=== PATIENT | male | born 1970 | race Caucasian/White ===

== ENCOUNTER 2022-03-29 08:28 | Day surgery (SDC) | payer OTHER ==
--- NOTE | 2022-03-28 12:47 | HP ---
DATE OF SURGERY: 03/29/2022 HISTORY OF PRESENT ILLNESS: The patient presents with complaints of nausea in the last month. He has had emesis as well. He had this before. It is after eating meals particularly fatty and greasy food. The patient had gallbladder ultrasound demonstrating some sludge. PAST MEDICAL HISTORY: Gastroesophageal reflux disease. PAST SURGICAL HISTORY: None. ALLERGIES: NKDA. MEDICATIONS: Protonix. FAMILY HISTORY: None. SOCIAL HISTORY: Former smoker. Daily alcohol. REVIEW OF SYSTEMS: CONSTITUTIONAL: Denies fever or chills. CHEST: Denies shortness of breath. CVS: Denies chest pain. ABDOMEN: Reports some upper abdominal pain, nausea and vomiting. Denies diarrhea, constipation or rectal bleeding. PHYSICAL EXAMINATION: GENERAL: No acute distress. CHEST: Nonlabored. No shortness of breath. CVS: Regular rate and rhythm. ABDOMEN: Soft. IMPRESSION: Chronic cholecystitis with sludge. PLAN: Laparoscopic cholecystectomy with Dr. Joe Downs. As dictated by Monica Perez NP.
[~2022-03-29 08:28] MED LIST: Lactated Ringers 1,000 ML IV ONE; Sensorcaine 0.25% 10 ML ONE
[2022-03-29] MEDS ORDERED: Pepcid 20 MG VIAL IV ONE ×3 (08:36→08:58)
[2022-03-29] MEDS ORDERED: Reglan 10 MG/2 ML IV ONE (08:36)
[2022-03-29] MEDS ORDERED: Versed 2 MG/2 ML Injection IV PRN (08:42)
[2022-03-29] MEDS ORDERED: Reglan 10 MG/2 ML ONE (08:59)
[2022-03-29] MEDS ORDERED: Lactated Ringers 1,000 ML IV ONE ×2 (08:59→10:15)
[2022-03-29] MEDS ORDERED: Lactated Ringers 1,000 ML IV SCH (09:00)
[2022-03-29] MEDS ORDERED: Versed 2 MG/2 ML Injection ONE (09:58)
[2022-03-29] MEDS ORDERED: MEFOXIN 2 GM PREMIX** 2 GM/50 ML ML IV SCH (10:00)
[2022-03-29] MEDS ORDERED: DIPRIVAN 200 MG/20 ML IV ONE (10:03)
[2022-03-29] MEDS ORDERED: Xylocaine-Mpf 2% 5 Ml Vial ONE (10:03)
[2022-03-29] MEDS ORDERED: Quelicin Fliptop 200 MG/10 ML ONE (10:03)
[2022-03-29] MEDS ORDERED: Zemuron 100 MG/10 ML ONE (10:03)
[2022-03-29] MEDS ORDERED: Zofran 4 MG/2 ML VIAL ONE (10:03)
[2022-03-29] MEDS ORDERED: Decadron 4 MG INJ ONE (10:03)
[2022-03-29] MEDS ORDERED: SUBLIMAZE 100 MCG/2 ML ONE ×3 (10:04→11:39)
[2022-03-29] MEDS ORDERED: Pre-Attached Lta Kit TP ONE (10:15)
[2022-03-29] MEDS ORDERED: OFIRMEV 100 ML IV ONE (10:15)
[2022-03-29] MEDS ORDERED: BRIDION 200MG/2ML IV ONE (10:45)
[2022-03-29] MEDS ORDERED: Hydromorphone 1 mg/ml Injection ONE (12:00)
[2022-03-29] MEDS ORDERED: TRANDATE 20 MG/4 ML SYRINGE IV ONE (12:10)
[2022-03-29] MEDS ORDERED: APRESOLINE 20 MG/ML INJ ONE (12:25)
[2022-03-29 13:05] VITALS: O2SAT 93
[2022-03-29] MEDS ORDERED: NORCO 5/325 MG PO PRN (13:06)
[2022-03-29 13:32] VITALS: BP 143/92; PULSE 85
--- NOTE | 2022-03-29 14:02 | OP ---
SURGERY DATE/TIME: 03/29/2022 1023 PREOPERATIVE DIAGNOSIS: Symptomatic cholelithiasis and sludge. POSTOPERATIVE DIAGNOSIS: Symptomatic cholelithiasis and sludge. PROCEDURE: Laparoscopic cholecystectomy. SURGEON: Dr. Joe Downs. DOOR FITTER: Eloina Guerrero, medical staff services coordinator III. ANESTHESIA: General endotracheal tube. ESTIMATED BLOOD LOSS: None. COMPLICATIONS: None. CONDITION: Stable. INDICATIONS: The patient has symptomatic gallbladder disease with sludge and small stones. Taken to surgery. DESCRIPTION OF PROCEDURE AND FINDINGS: Taken to surgery. General anesthetic. Routine prep and drape. Veress needle inserted. Opening pressure of 1, insufflating pressure 14. Four - 5's, good visualization. Cystic duct defined triply clipped. Cystic artery defined triply clipped. Gallbladder rolled out of gallbladder fossa. The gallbladder delivered through epigastric port. Hole closure device was used. The field was dry. CO2 exsufflated. Skin closed with 4-0 Vicryl and Steri-Strips. The patient tolerated the procedure satisfactorily.
== END 2022-03-29 13:33 | disposition home or self-care (01) ==
LOC: SDC 08:28
PROVIDERS: ATTEND Surgery
DX: K80.20 Calculus of gallbladder without cholecystitis without obstruction (principal)
CPT/HCPCS: 96374; 96375; J0330; J0360; J0694; J1100; J1170; J2250; J2405; J2704; J3010; A9270-GY